=== PATIENT | female | born 1990 | race Two or more races ===

== ENCOUNTER 2020-12-18 02:10 | Emergency (ER) | payer OTHER ==
[~2020-12-18] VITALS: Ht 162.6 cm; Wt 129.7 kg
[2020-12-18] MEDS ORDERED: CEFTRIAXONE 1GM BAG (ER ONLY) 50 ML IV ONE (02:21)
[2020-12-18] MEDS ORDERED: ONDANSETRON HCL/PF 4 MG/2 ML VIAL ONE (02:21)
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
[2020-12-18] MEDS ORDERED: HYDROMORPHONE 1 MG/1 ML DISP.SYRIN ONE (02:22)
[2020-12-18] MEDS: HYDROMORPHONE 1 MG/1 ML DISP.SYRIN IV ONE ×2 (02:30→03:55)
[2020-12-18] MEDS: CEFTRIAXONE 1GM BAG (ER ONLY) 1 GM/50 ML PIGGYBACK IV ONE (02:30)
[2020-12-18] MEDS: ONDANSETRON HCL/PF - ER 4 MG/2 ML VIAL IV ONE (02:30)
--- NOTE | 2020-12-18 02:30 | NUR ---
ADDENDUM: Intravenous End Time Documentation: Rocephin 1 gram IVPB: start time: 0230 am ; end time: 0330 am IV site: PIV # 18 LAC Port # 1
[2020-12-18] MEDS: TDAP [DIPH/PERTUSSIS/TET] 0.5 ML VIAL IM ONE (02:48)
--- NOTE | 2020-12-18 02:49 | NUR ---
RADIOLOGY AT BEDSIDE
[2020-12-18] MEDS ORDERED: HYDR-4209 PO (03:35)
[2020-12-18] MEDS ORDERED: CEPH500C2 PO (03:35)
[2020-12-18] MEDS ORDERED: HYDROMORPHONE INJ 2 MG/ML DISP.SYRIN ONE (03:49)
--- NOTE | 2020-12-18 04:34 | NUR ---
IV removed. Catheter intact and site benign. Pressure and 4x4 applied to site. No bleeding noted.
--- NOTE | 2020-12-18 04:34 | NUR ---
Patient discharged to home in stable condition. Written and verbal after care instructions given. Patient verbalizes understanding of instruction and RX. Pt provided with crutches. Pt ambulated around the ED using crutches. VSS. Picked up by family member.
[2020-12-18 04:38] VITALS: BP 135/89
== END 2020-12-18 04:39 | disposition home or self-care (01) ==
LOC: ER 02:12
DX: S91.332A Puncture wound without foreign body, left foot, initial encounter (principal); Z79.899 Other long term (current) drug therapy; W34.09XA Accidental discharge from other specified firearms, initial encounter; Y93.89 Activity, other specified; Y92.89 Other specified places as the place of occurrence of the external cause; Y99.8 Other external cause status
CPT/HCPCS: 29515; 73630; 96365; 96375; 96376; 99284; J0696; J1170 ×2; J2405 ×2